=== PATIENT | female | born 1960 | race Asian ===

== ENCOUNTER 2023-05-28 06:36 | Day surgery (SDC) | payer OTHER ==
[~2023-05-28] VITALS: Ht 157.5 cm; Wt 57.4 kg
[2023-05-28] MEDS ORDERED: MEPERIDINE 100 MG INJ. 100 MG/ML VIAL ONE (07:44)
[2023-05-28] MEDS ORDERED: MIDAZOLAM HCL 5 MG/5 ML VIAL ONE (07:45)
[2023-05-28] MEDS ORDERED: SIMETHICONE 40 MG/0.6 ML ML ONE (08:32)
[2023-05-28 13:53] VITALS: BP_SYST 132; PULSE 65; RESP 18; TEMP 98.7; O2SAT 100
== END 2023-05-28 11:41 | disposition home or self-care (01) ==
LOC: SDS 06:36 → SMU 06:37 → EDBD 08:45 → SDS 11:41
PROVIDERS: ATTEND Internal Medicine Gastroenterology
DX: Z12.11 Encounter for screening for malignant neoplasm of colon (principal); K64.8 Other hemorrhoids; K57.30 Diverticulosis of large intestine without perforation or abscess without bleeding; Z90.89 Acquired absence of other organs; Z79.899 Other long term (current) drug therapy; Z86.010 Personal history of colon polyps
CPT/HCPCS: 99152; 45378; G0378; J2250; J2175